=== PATIENT | male | born 1990 | race Hispanic/Latino ===

== ENCOUNTER 2024-06-22 10:49 | Emergency (ER) | payer SELFPAY ==
[~2024-06-22] VITALS: Ht 162.6 cm; Wt 112.0 kg
[2024-06-22] VITALS (20 sets, daily range): BP systolic 169–214; BP diastolic 106–154
[2024-06-22] MEDS ORDERED: ZYRTEC10 MG PO (13:14)
[2024-06-22] MEDS ORDERED: FLOXIN OTIC0.3 % AD (13:14)
[2024-06-22] MEDS ORDERED: cloNIDine HCL 0.1 MG/TAB PO ONE (13:25)
[2024-06-22] MEDS ORDERED: amLODIPine BESYLATE 5 MG/TAB PO ONE (14:25)
== END 2024-06-22 15:28 | disposition home or self-care (01) | DRG 156 ==
LOC: ED 10:49
DX: H60.91 Unspecified otitis externa, right ear (principal); I10 Essential (primary) hypertension